=== PATIENT | female | born 1975 | race Caucasian/White ===

== ENCOUNTER 2022-04-11 15:27 | Emergency (ER) | payer BC, SELFPAY ==
--- NOTE | ~2022-04-11 | CT_ITS ---
EXAMINATION: CT ABDOMEN AND PELVIS WITHOUT CONTRAST CLINICAL INFORMATION: Suprapubic abdominal pain and history kidney stones COMPARISON: None TECHNIQUE: Multidetector volumetric imaging was performed from the superior aspect of the liver through the pubic symphysis. Sagittal and coronal reformatted images were obtained on the technologist's workstation. This CT examination was performed using dose optimization techniques as appropriate, variously including the following: *Automated exposure control *Adjustment of mA and/or kV according to patient size (this includes techniques or standardized protocols for targeted exams where dose is matched to indication/reason for exam; i.e. extremities or head) *Use of iterative reconstruction technique DLP: 637 mGy-cm FINDINGS: LUNG BASES: The visualized lung bases are unremarkable. LIVER, GALLBLADDER, AND BILIARY TREE: The liver is normal in size, shape, and attenuation. No focal hepatic lesion or biliary ductal dilatation is present. Status post cholecystectomy. PANCREAS: Unremarkable. SPLEEN: Unremarkable. ADRENAL GLANDS: Unremarkable. KIDNEYS AND URETERS: Approximately 1 cm nonobstructing right lower pole renal calculus versus cluster of [id number] stones. Adjacent 6 mm lower pole calculus and a punctate mid to lower pole calculus. Punctate 1-2 mm left lower pole calculus. No ureteral calculi. No hydronephrosis. No renal lesions. No perinephric stranding or collection. BLADDER: Unremarkable. GASTROINTESTINAL TRACT: Mild diverticulosis of the descending colon. No evidence of acute diverticulitis. No dilated bowel loops. No bowel wall thickening. Status post appendectomy. No intra-abdominal free air. ABDOMINAL WALL: Tiny fat-containing umbilical hernia. LYMPH NODES: No lymphadenopathy. VASCULAR: Unremarkable. PELVIC VISCERA: Status post hysterectomy. There is a small amount of free pelvic fluid with attenuation values greater than simple fluid measuring 23 Hounsfield units. No appreciable adnexal cyst/mass OSSEOUS STRUCTURES: No acute fracture or suspicious osseous lesion. CT/CT abdomen pelvis wo IV con IMPRESSION: 1. Small amount of free pelvic fluid, nonspecific. 2. No ureteral calculi or hydronephrosis. 3. Nonobstructing bilateral renal calculi, as described. 4. Status post cholecystectomy and appendectomy. 5. Mild colonic diverticulosis. No evidence of acute diverticulitis.
--- NOTE | ~2022-04-11 | US_ITS ---
EXAMINATION: US PELVIS CLINICAL INFORMATION: Suprapubic pelvic pain COMPARISON: CT abdomen pelvis performed earlier the same date TECHNIQUE: Ultrasound of the pelvis is performed using both transabdominal and transvaginal transducers along with Doppler. Transvaginal imaging is performed due to inadequate visualization transabdominally. FINDINGS: Status post hysterectomy. Adnexa: Both ovaries are visualized. There is dopplerable venous flow within the left ovary. Arterial flow not demonstrated. No dopplerable flow demonstrated in the right ovary due to artifact from adjacent peristalsing bowel loops. Small amount of free pelvic fluid better seen on prior CT. Right ovary measures 1.8 x 1.2 x 1 cm, volume 1.1 mL. No adnexal cyst/mass. Left ovary measures 1.7 x 1.4 x 1 cm, volume 1.3 mL. No adnexal cyst/mass. US/US pelvic and transvaginal IMPRESSION: 1. Status post hysterectomy. 2. Quiescent appearance of the ovaries. No adnexal cyst/mass or enlargement. Limited Doppler assessment on this exam.
--- NOTE | ~2022-04-11 | US_ITS ---
EXAMINATION: US PELVIS CLINICAL INFORMATION: Suprapubic pelvic pain COMPARISON: CT abdomen pelvis performed earlier the same date TECHNIQUE: Ultrasound of the pelvis is performed using both transabdominal and transvaginal transducers along with Doppler. Transvaginal imaging is performed due to inadequate visualization transabdominally. FINDINGS: Status post hysterectomy. Adnexa: Both ovaries are visualized. There is dopplerable venous flow within the left ovary. Arterial flow not demonstrated. No dopplerable flow demonstrated in the right ovary due to artifact from adjacent peristalsing bowel loops. Small amount of free pelvic fluid better seen on prior CT. Right ovary measures 1.8 x 1.2 x 1 cm, volume 1.1 mL. No adnexal cyst/mass. Left ovary measures 1.7 x 1.4 x 1 cm, volume 1.3 mL. No adnexal cyst/mass. US/US pelvic ovarian doppler IMPRESSION: 1. Status post hysterectomy. 2. Quiescent appearance of the ovaries. No adnexal cyst/mass or enlargement. Limited Doppler assessment on this exam.
--- NOTE | 2022-04-11 15:28 | ED.ABDPAIN ---
HPI - Abdominal Pain General Chief Complaint: Abdominal Pain <HI Guerra - Last Filed: 04/11/22 15:38> Stated Complaint: ?Kidney Stones <HI Guerra - Last Filed: 04/11/22 15:38> Time Seen by Provider: 04/11/22 15:48 <HI Guerra - Last Filed: 04/11/22 15:38> Source: patient <HI Gonzalez Last Filed: 04/11/22 18:59> Mode of arrival: ambulatory <HI Gonzalez - Last Filed: 04/11/22 18:59> Limitations: no limitations <HI Gonzalez Last Filed: 04/11/22 18:59> History of Present Illness HPI narrative: 46yoF with a PMHx of kidney stones, partial hysterectomy c/o sudden onset suprapubic abdominal pain and nausea while at [facility] [employer]. Reports it feels similar to her kidney stones pains. She denies any fevers, chills, nasal congestion/rhinorrhea, cough, chest pain or shortness of breath, back pain, flank pain, vomiting, black or bloody stools, diarrhea constipation, dysuria hematuria, abnormal vaginal discharge vaginal bleeding, recent travel or sick contacts or any other symptoms complaints or concerns at this time. <HI Gonzalez - Last Filed: 04/11/22 18:59> MD elicited complaint: abdominal pain <HI Gonzalez Last Filed: 04/11/22 18:59> Pertinent past history: kidney stones <HI Gonzalez Last Filed: 04/11/22 18:59> Onset (ago): hour(s) (Prior to arrival) <HI Gonzalez Last Filed: 04/11/22 18:59> Pain Consistency: constant <HI Gonzalez Last Filed: 04/11/22 18:59> Location: suprapubic <HI Gonzalez Last Filed: 04/11/22 18:59> Severity: moderate <HI Gonzalez Last Filed: 04/11/22 18:59> Quality: aching <HI Gonzalez Last Filed: 04/11/22 18:59> Radiation: none <HI Gonzalez Last Filed: 04/11/22 18:59> Migration to: no migration <HI Gonzalez Last Filed: 04/11/22 18:59> Exacerbating factors: nothing <HI Gonzalez Last Filed: 04/11/22 18:59> Relieving factors: nothing <HI Gonzalez Last Filed: 04/11/22 18:59> Associated symptoms: nausea <HI Gonzalez Last Filed: 04/11/22 18:59> Related Data Home Medications: Previous Rx's Medication Instructions Recorded ondansetron 4 mg disintegrating 4 mg PO Q6H PRN nausea and 04/11/22 tablet vomiting #14 tabs <HI Guerra Last Filed: 04/11/22 15:38> Allergies/Adverse Reactions: Allergies Allergy/AdvReac Type Severity Reaction Status Date / Time Iodinated Contrast Media Allergy Angioedema Verified 04/11/22 15:28 [IV Contrast Dye] <HI Guerra Last Filed: 04/11/22 15:38> Review of Systems Review of Systems Constitutional : No Fever, No Chills, No Night Sweats, No Fatigue, No Malaise Cardiovascular : No Chest Pain, No SOB Respiratory : No Cough, No Sputum, No Wheezing, No Dyspnea Gastrointestinal : + Nausea, No Vomiting, No Diarrhea, + abdominal Pain, No Hematochezia, No Melena Genitourinary : No irregular bleeding, No Dysuria, No Urinary Frequency, No Hematuria,No Urinary Incontinence, No Urgency, No Flank Pain Musculoskeletal : No joint pain, No Myalgias, No Joint Swelling Skin : No Skin Lesions, No rash Neuro : No Weakness, No Numbness, No Paresthesias, No Loss of Consciousness, No Dizziness, No Headache Heme/Lymph: No Lymphadenopathy Endocrine : No Temperature Intolerance <HI Gonzalez Last Filed: 04/11/22 18:59> Yes all other systems are reviewed and are negative <HI Gonzalez Last Filed: 04/11/22 18:59> PMFSH Past Medical History Attestation statement: The following information was validated with the patient. <HI Gonzalez Last Filed: 04/11/22 18:59> Source: old records reviewed and nursing notes reviewed <HI Gonzalez - Last Filed: 04/11/22 18:59> Medical History: Medical History (Updated 04/11/22 @ 21:21 by HI Lynn) Kidney stones <HI Guerra - Last Filed: 04/11/22 15:38> Surgical History: Surgical History (Updated 04/11/22 @ 17:28 by HI Gonzalez) History of appendectomy History of cholecystectomy Previous section S/P partial hysterectomy <HI Guerra - Last Filed: 04/11/22 15:38> Social History Social History: Social History Alcohol intake: never Smoked in Last 30 Days: No Use of substances other than those prescribed or required for medical reasons: No Advance Directives: No Advance Directives Information Provided: Yes <HI Guerra - Last Filed: 04/11/22 15:38> Physical Exam ED Vital Signs: Vital Signs - 24 hr 04/11/22 15:29 04/11/22 18:19 04/11/22 19:22 Temperature 97.8 F 98.4 F 98.1 F Pulse Rate 99 80 78 Respiratory Rate 18 13 18 Blood Pressure 152/92 H 122/84 128/75 Pulse Oximetry 99 98 98 Oxygen Delivery Method Room Air Room Air Room Air BMI result Body Mass Index 29.9 <HI Guerra - Last Filed: 04/11/22 15:38> Vital Signs - 24 hr 04/11/22 15:29 04/11/22 18:19 04/11/22 19:22 Temperature 97.8 F 98.4 F 98.1 F Pulse Rate 99 80 78 Respiratory Rate 18 13 18 Blood Pressure 152/92 H 122/84 128/75 Pulse Oximetry 99 98 98 Oxygen Delivery Method Room Air Room Air Room Air BMI result Body Mass Index 29.9 Vital signs have been reviewed and all within normal limits <HI Gonzalez - Last Filed: 04/11/22 18:59> Vital Signs - 24 hr 04/11/22 15:29 04/11/22 18:19 04/11/22 19:22 Temperature 97.8 F 98.4 F 98.1 F Pulse Rate 99 80 78 Respiratory Rate 18 13 18 Blood Pressure 152/92 H 122/84 128/75 Pulse Oximetry 99 98 98 Oxygen Delivery Method Room Air Room Air Room Air BMI result Body Mass Index 29.9 <HI Lynn - Last Filed: 04/11/22 21:24> Appearance: Alert. Oriented X3. No acute distress. Head: Normal external exam. Normocephalic. Eyes: PERRLA. EOMI. Conjunctiva and sclera normal. Eyelids normal. ENT: Pharynx normal. Uvula midline. Moist mucous membranes. No trismus noted. No drooling noted. No muffled voice noted. Neck: Normal inspection. Neck supple. FROM. No adenopathy. No meningeal signs. CVS: Normal heart rate and rhythm. Heart sound normal. No murmurs noted. Pulses normal throughout. Respiratory: No respiratory distress. Painless inspiration. Breath sounds normal. No wheezes/rales/rhonchi noted. Chest nontender. No accessory muscle usage noted or decreased air movement noted. Abdomen: Soft and moderate tenderness palpation to the suprapubic area with guarding. Nondistended. No rigidity. Bowel sounds normal in all 4 quadrants. No distention noted. No organomegaly noted. No visible injury noted. No rebound tenderness. Negative Rovsing sign. Negative obturator's sign. Negative psoas sign. Negative Vidal sign. Back: No CVA tenderness. Full range of motion noted. Skin: Skin warm and dry. Normal skin color. Normal skin turgor. No rashes/lesions/lacerations noted. Extremities: Extremities exhibit normal range of motion. Extremities nontender. Neuro: Oriented X 3. No motor deficit. No sensory deficit. Reflexes normal. Normal steady gait. CN's II-XII intact bilaterally? <HI Gonzalez - Last Filed: 04/11/22 18:59> Course Course Course Narrative: RME--46yo F w/PMHx renal stone, partial hysterectomy c/o sudden onset suprapubic abdominal pain and nausea while at [facility] [employer]. Denies fever, vomiting, flank pain, dysuria/hematuria, vaginal bleeding/discharge Patient very uncomfortable, in position, tearful, abdomen soft with suprapubic tenderness, no CVAT Labs, UA, IVF ordered, patient brought back to main ED <HI Guerra - Last Filed: 04/11/22 15:38> Reevaluation(s) Reevaluation #1: 46yoF with a PMHx of kidney stones, partial hysterectomy c/o sudden onset suprapubic abdominal pain and nausea while at [facility] [employer]. Reports it feels similar to her kidney stones pains. This is a with suprapubic abdominal pain, most concerning for kidney stone. Differential diagnoses: UTI. Abdominal exam without peritoneal signs. No evidence of acute abdomen at this time. Well appearing. Low suspicion for acute hepatobiliary disease (includng acute cholecystitis), acute infectious processes (pneumonia, hepatitis, pyelonephritis), vascular catastrophe, bowel obstruction or viscus perforation. Presentation not consistent with other acute, emergent causes of abdominal pain at this time. Labs reviewed - chloride 109. - Anion gap 10. - BUN 21. Otherwise all other labs are within normal limits. Plan: CT scan abdomen pelvis with IV contrast ordered at this time along with IVF's, 4 mg Zofran, 30 mg of IV Toradol and 4 mg of morphine and re-evaluate. <HI Gonzalez - Last Filed: 04/11/22 18:59> Time: 16:20 <HI Gonzalez - Last Filed: 04/11/22 18:59> Reevaluation #2: CT scan abdomen pelvis without IV contrast revealed small amount of free pelvic fluid nonspecific otherwise no hydronephrosis or ureteral calculi. She does have some stones in the kidneys. Otherwise no other acute processes. Therefore I discussed this with the patient will obtain an ultrasound of her ovaries/Doppler. Sign out to SUNIL Hull pending ultrasound and UA. <HI Gonzalez - Last Filed: 04/11/22 18:59> Time: 18:56 <HI Gonzalez Last Filed: 04/11/22 18:59> Reevaluation #3: UA without infection. Pelvic ultrasound status post hysterectomy. No adnexal cyst or mass or enlargement. Limited Doppler assessment on this exam however patient's history and physical exam not consistent with ovarian torsion. Case discussed my attending Dr. Bustillo who agrees with discharge home. Patient states she was in 10/10 pain before now experiencing 4/10 pain she reports significant improvement pain. Patient tolerating p.o.. Will be discharged home with PCP in OBGYN follow-up <HI Lynn - Last Filed: 04/11/22 21:24> Time: 21:24 <HI Lynn - Last Filed: 04/11/22 21:24> Medical Decision Making Lab Data MDM Lab Attestation statement: I reviewed the patient's lab results. <HI Gonzalez - Last Filed: 04/11/22 18:59> Result Diagrams: 04/11/22 15:54 04/11/22 15:54 <HI Guerra - Last Filed: 04/11/22 15:38> Labs: Lab Results 04/11/22 04/11/22 04/11/22 Range/Units 15:54 15:54 15:54 WBC 10.1 (4.8-10.8) X10*3/uL RBC 4.99 (4.20-5.50) X10*6/uL Hgb 14.0 (12.0-16.0) g/dl Hct 42.9 (37.0-47.0) % MCV 86.0 (80.0-98.0) fL MCH 28.1 (27.0-33.0) pg MCHC 32.6 (31.0-35.0) g/dl RDW 12.4 (11.0-16.0) % Plt Count 300 (160-400) X10*3/uL MPV 9.2 L (9.4-12.3) fL Immature Gran % (Auto) 0.2 (0.0-0.4) % Neut % (Auto) 70.2 (45-73) % Lymph % (Auto) 19.7 L (20-40) % [place] % (Auto) 6.5 (2-11) % Eos % (Auto) 3.0 (0-4) % Baso % (Auto) 0.4 (0-2) % Lymph # (Auto) 2.0 (1.2-4.9) X10*3/uL [place] # (Auto) 0.7 (0.1-1.2) X10*3/uL Eos # (Auto) 0.3 (0.0-0.4) X10*3/uL Baso # (Auto) 0.0 (0.0-0.2) X10*3/uL Abs Immat Gran (auto) 0.02 (0.00-0.03) X10*3/uL Absolute Neuts (auto) 7.1 (2.0-8.3) x10*3/uL Absolute Nucleated RBC 0.000 (0.0-0.012) X10*3/uL Nucleated RBC % (auto) 0.0 (0.0-0.2) /100WBC Sodium 140 (135-145) mmol/L Potassium 4.2 (3.3-5.1) mmol/L Chloride 109 H (96-108) mmol/L Carbon Dioxide 25 (22-29) mmol/L Anion Gap 10 L (12-20) BUN 21 H (9-16) mg/dL Creatinine 0.83 (0.5-1.4) mg/dL Estim Creat Clear Calc 89.3 Estimated GFR > 60 Random Glucose 88 (60-115) mg/dL Calcium 9.6 (8.4-10.2) mg/dL Magnesium 2.1 (1.6-2.6) mg/dL Total Bilirubin 0.3 (0.0-1.0) mg/dL Direct Bilirubin < 0.2 (0.0-0.5) mg/dL AST 16 (5-31) U/L ALT 17 (0-31) U/L Alkaline Phosphatase 73 (39-117) U/L Total Protein 6.9 (6.5-8.0) g/dL Albumin 4.3 (3.5-5.0) g/dL Lipase 26 (8-78) U/L Beta HCG, Quant < 2 mIU/mL Urine Color Urine Appearance Urine pH (5.0-9.0) Ur Specific [place] (1.005-1.025) Urine Protein (Neg-Trace) mg/dL Urine Glucose (UA) (Negative) mg/dL Urine Ketones (Negative) mg/dL Urine Blood (Negative) Urine Nitrite (Negative) Ur Leukocyte Esterase (Negative) 04/11/22 Range/Units 18:02 WBC (4.8-10.8) X10*3/uL RBC (4.20-5.50) X10*6/uL Hgb (12.0-16.0) g/dl Hct (37.0-47.0) % MCV (80.0-98.0) fL MCH (27.0-33.0) pg MCHC (31.0-35.0) g/dl RDW (11.0-16.0) % Plt Count (160-400) X10*3/uL MPV (9.4-12.3) fL Immature Gran % (Auto) (0.0-0.4) % Neut % (Auto) (45-73) % Lymph % (Auto) (20-40) % [place] % (Auto) (2-11) % Eos % (Auto) (0-4) % Baso % (Auto) (0-2) % Lymph # (Auto) (1.2-4.9) X10*3/uL [place] # (Auto) (0.1-1.2) X10*3/uL Eos # (Auto) (0.0-0.4) X10*3/uL Baso # (Auto) (0.0-0.2) X10*3/uL Abs Immat Gran (auto) (0.00-0.03) X10*3/uL Absolute Neuts (auto) (2.0-8.3) x10*3/uL Absolute Nucleated RBC (0.0-0.012) X10*3/uL Nucleated RBC % (auto) (0.0-0.2) /100WBC Sodium (135-145) mmol/L Potassium (3.3-5.1) mmol/L Chloride (96-108) mmol/L Carbon Dioxide (22-29) mmol/L Anion Gap (12-20) BUN (9-16) mg/dL Creatinine (0.5-1.4) mg/dL Estim Creat Clear Calc Estimated GFR Random Glucose (60-115) mg/dL Calcium (8.4-10.2) mg/dL Magnesium (1.6-2.6) mg/dL Total Bilirubin (0.0-1.0) mg/dL Direct Bilirubin (0.0-0.5) mg/dL AST (5-31) U/L ALT (0-31) U/L Alkaline Phosphatase (39-117) U/L Total Protein (6.5-8.0) g/dL Albumin (3.5-5.0) g/dL Lipase (8-78) U/L Beta HCG, Quant mIU/mL Urine Color Yellow Urine Appearance Clear Urine pH 6.5 (5.0-9.0) Ur Specific [place] <= 1.005 (1.005-1.025) Urine Protein Negative (Neg-Trace) mg/dL Urine Glucose (UA) Negative (Negative) mg/dL Urine Ketones Negative (Negative) mg/dL Urine Blood Negative (Negative) Urine Nitrite Negative (Negative) Ur Leukocyte Esterase Negative (Negative) <HI Guerra - Last Filed: 04/11/22 15:38> Lab Results 04/11/22 04/11/22 04/11/22 Range/Units 15:54 15:54 15:54 WBC 10.1 (4.8-10.8) X10*3/uL RBC 4.99 (4.20-5.50) X10*6/uL Hgb 14.0 (12.0-16.0) g/dl Hct 42.9 (37.0-47.0) % MCV 86.0 (80.0-98.0) fL MCH 28.1 (27.0-33.0) pg MCHC 32.6 (31.0-35.0) g/dl RDW 12.4 (11.0-16.0) % Plt Count 300 (160-400) X10*3/uL MPV 9.2 L (9.4-12.3) fL Immature Gran % (Auto) 0.2 (0.0-0.4) % Neut % (Auto) 70.2 (45-73) % Lymph % (Auto) 19.7 L (20-40) % [place] % (Auto) 6.5 (2-11) % Eos % (Auto) 3.0 (0-4) % Baso % (Auto) 0.4 (0-2) % Lymph # (Auto) 2.0 (1.2-4.9) X10*3/uL [place] # (Auto) 0.7 (0.1-1.2) X10*3/uL Eos # (Auto) 0.3 (0.0-0.4) X10*3/uL Baso # (Auto) 0.0 (0.0-0.2) X10*3/uL Abs Immat Gran (auto) 0.02 (0.00-0.03) X10*3/uL Absolute Neuts (auto) 7.1 (2.0-8.3) x10*3/uL Absolute Nucleated RBC 0.000 (0.0-0.012) X10*3/uL Nucleated RBC % (auto) 0.0 (0.0-0.2) /100WBC Sodium 140 (135-145) mmol/L Potassium 4.2 (3.3-5.1) mmol/L Chloride 109 H (96-108) mmol/L Carbon Dioxide 25 (22-29) mmol/L Anion Gap 10 L (12-20) BUN 21 H (9-16) mg/dL Creatinine 0.83 (0.5-1.4) mg/dL Estim Creat Clear Calc 89.3 Estimated GFR > 60 Random Glucose 88 (60-115) mg/dL Calcium 9.6 (8.4-10.2) mg/dL Magnesium 2.1 (1.6-2.6) mg/dL Total Bilirubin 0.3 (0.0-1.0) mg/dL Direct Bilirubin < 0.2 (0.0-0.5) mg/dL AST 16 (5-31) U/L ALT 17 (0-31) U/L Alkaline Phosphatase 73 (39-117) U/L Total Protein 6.9 (6.5-8.0) g/dL Albumin 4.3 (3.5-5.0) g/dL Lipase 26 (8-78) U/L Beta HCG, Quant < 2 mIU/mL Urine Color Urine Appearance Urine pH (5.0-9.0) Ur Specific [place] (1.005-1.025) Urine Protein (Neg-Trace) mg/dL Urine Glucose (UA) (Negative) mg/dL Urine Ketones (Negative) mg/dL Urine Blood (Negative) Urine Nitrite (Negative) Ur Leukocyte Esterase (Negative) 04/11/22 Range/Units 18:02 WBC (4.8-10.8) X10*3/uL RBC (4.20-5.50) X10*6/uL Hgb (12.0-16.0) g/dl Hct (37.0-47.0) % MCV (80.0-98.0) fL MCH (27.0-33.0) pg MCHC (31.0-35.0) g/dl RDW (11.0-16.0) % Plt Count (160-400) X10*3/uL MPV (9.4-12.3) fL Immature Gran % (Auto) (0.0-0.4) % Neut % (Auto) (45-73) % Lymph % (Auto) (20-40) % [place] % (Auto) (2-11) % Eos % (Auto) (0-4) % Baso % (Auto) (0-2) % Lymph # (Auto) (1.2-4.9) X10*3/uL [place] # (Auto) (0.1-1.2) X10*3/uL Eos # (Auto) (0.0-0.4) X10*3/uL Baso # (Auto) (0.0-0.2) X10*3/uL Abs Immat Gran (auto) (0.00-0.03) X10*3/uL Absolute Neuts (auto) (2.0-8.3) x10*3/uL Absolute Nucleated RBC (0.0-0.012) X10*3/uL Nucleated RBC % (auto) (0.0-0.2) /100WBC Sodium (135-145) mmol/L Potassium (3.3-5.1) mmol/L Chloride (96-108) mmol/L Carbon Dioxide (22-29) mmol/L Anion Gap (12-20) BUN (9-16) mg/dL Creatinine (0.5-1.4) mg/dL Estim Creat Clear Calc Estimated GFR Random Glucose (60-115) mg/dL Calcium (8.4-10.2) mg/dL Magnesium (1.6-2.6) mg/dL Total Bilirubin (0.0-1.0) mg/dL Direct Bilirubin (0.0-0.5) mg/dL AST (5-31) U/L ALT (0-31) U/L Alkaline Phosphatase (39-117) U/L Total Protein (6.5-8.0) g/dL Albumin (3.5-5.0) g/dL Lipase (8-78) U/L Beta HCG, Quant mIU/mL Urine Color Yellow Urine Appearance Clear Urine pH 6.5 (5.0-9.0) Ur Specific [place] <= 1.005 (1.005-1.025) Urine Protein Negative (Neg-Trace) mg/dL Urine Glucose (UA) Negative (Negative) mg/dL Urine Ketones Negative (Negative) mg/dL Urine Blood Negative (Negative) Urine Nitrite Negative (Negative) Ur Leukocyte Esterase Negative (Negative) <HI Gonzalez - Last Filed: 04/11/22 18:59> Lab Results 04/11/22 04/11/22 04/11/22 Range/Units 15:54 15:54 15:54 WBC 10.1 (4.8-10.8) X10*3/uL RBC 4.99 (4.20-5.50) X10*6/uL Hgb 14.0 (12.0-16.0) g/dl Hct 42.9 (37.0-47.0) % MCV 86.0 (80.0-98.0) fL MCH 28.1 (27.0-33.0) pg MCHC 32.6 (31.0-35.0) g/dl RDW 12.4 (11.0-16.0) % Plt Count 300 (160-400) X10*3/uL MPV 9.2 L (9.4-12.3) fL Immature Gran % (Auto) 0.2 (0.0-0.4) % Neut % (Auto) 70.2 (45-73) % Lymph % (Auto) 19.7 L (20-40) % [place] % (Auto) 6.5 (2-11) % Eos % (Auto) 3.0 (0-4) % Baso % (Auto) 0.4 (0-2) % Lymph # (Auto) 2.0 (1.2-4.9) X10*3/uL [place] # (Auto) 0.7 (0.1-1.2) X10*3/uL Eos # (Auto) 0.3 (0.0-0.4) X10*3/uL Baso # (Auto) 0.0 (0.0-0.2) X10*3/uL Abs Immat Gran (auto) 0.02 (0.00-0.03) X10*3/uL Absolute Neuts (auto) 7.1 (2.0-8.3) x10*3/uL Absolute Nucleated RBC 0.000 (0.0-0.012) X10*3/uL Nucleated RBC % (auto) 0.0 (0.0-0.2) /100WBC Sodium 140 (135-145) mmol/L Potassium 4.2 (3.3-5.1) mmol/L Chloride 109 H (96-108) mmol/L Carbon Dioxide 25 (22-29) mmol/L Anion Gap 10 L (12-20) BUN 21 H (9-16) mg/dL Creatinine 0.83 (0.5-1.4) mg/dL Estim Creat Clear Calc 89.3 Estimated GFR > 60 Random Glucose 88 (60-115) mg/dL Calcium 9.6 (8.4-10.2) mg/dL Magnesium 2.1 (1.6-2.6) mg/dL Total Bilirubin 0.3 (0.0-1.0) mg/dL Direct Bilirubin < 0.2 (0.0-0.5) mg/dL AST 16 (5-31) U/L ALT 17 (0-31) U/L Alkaline Phosphatase 73 (39-117) U/L Total Protein 6.9 (6.5-8.0) g/dL Albumin 4.3 (3.5-5.0) g/dL Lipase 26 (8-78) U/L Beta HCG, Quant < 2 mIU/mL Urine Color Urine Appearance Urine pH (5.0-9.0) Ur Specific [place] (1.005-1.025) Urine Protein (Neg-Trace) mg/dL Urine Glucose (UA) (Negative) mg/dL Urine Ketones (Negative) mg/dL Urine Blood (Negative) Urine Nitrite (Negative) Ur Leukocyte Esterase (Negative) 04/11/22 Range/Units 18:02 WBC (4.8-10.8) X10*3/uL RBC (4.20-5.50) X10*6/uL Hgb (12.0-16.0) g/dl Hct (37.0-47.0) % MCV (80.0-98.0) fL MCH (27.0-33.0) pg MCHC (31.0-35.0) g/dl RDW (11.0-16.0) % Plt Count (160-400) X10*3/uL MPV (9.4-12.3) fL Immature Gran % (Auto) (0.0-0.4) % Neut % (Auto) (45-73) % Lymph % (Auto) (20-40) % [place] % (Auto) (2-11) % Eos % (Auto) (0-4) % Baso % (Auto) (0-2) % Lymph # (Auto) (1.2-4.9) X10*3/uL [place] # (Auto) (0.1-1.2) X10*3/uL Eos # (Auto) (0.0-0.4) X10*3/uL Baso # (Auto) (0.0-0.2) X10*3/uL Abs Immat Gran (auto) (0.00-0.03) X10*3/uL Absolute Neuts (auto) (2.0-8.3) x10*3/uL Absolute Nucleated RBC (0.0-0.012) X10*3/uL Nucleated RBC % (auto) (0.0-0.2) /100WBC Sodium (135-145) mmol/L Potassium (3.3-5.1) mmol/L Chloride (96-108) mmol/L Carbon Dioxide (22-29) mmol/L Anion Gap (12-20) BUN (9-16) mg/dL Creatinine (0.5-1.4) mg/dL Estim Creat Clear Calc Estimated GFR Random Glucose (60-115) mg/dL Calcium (8.4-10.2) mg/dL Magnesium (1.6-2.6) mg/dL Total Bilirubin (0.0-1.0) mg/dL Direct Bilirubin (0.0-0.5) mg/dL AST (5-31) U/L ALT (0-31) U/L Alkaline Phosphatase (39-117) U/L Total Protein (6.5-8.0) g/dL Albumin (3.5-5.0) g/dL Lipase (8-78) U/L Beta HCG, Quant mIU/mL Urine Color Yellow Urine Appearance Clear Urine pH 6.5 (5.0-9.0) Ur Specific [place] <= 1.005 (1.005-1.025) Urine Protein Negative (Neg-Trace) mg/dL Urine Glucose (UA) Negative (Negative) mg/dL Urine Ketones Negative (Negative) mg/dL Urine Blood Negative (Negative) Urine Nitrite Negative (Negative) Ur Leukocyte Esterase Negative (Negative) <HI Lynn - Last Filed: 04/11/22 21:24> Independent Interpretation I performed an independent interpretation of an: CT Scan (CT scan results reviewed and discussed with patient at bedside) <HI Gonzalez - Last Filed: 04/11/22 18:59> Radiology Impression Discussion of test interpretation with radiology: I have reviewed the radiologist's reading. <HI Gonzalez - Last Filed: 04/11/22 18:59> Radiologist Impression: DLP: 637 mGy-cm FINDINGS: LUNG BASES: The visualized lung bases are unremarkable.? LIVER, GALLBLADDER, AND BILIARY TREE: The liver is normal in size, shape, and attenuation. No focal hepatic lesion or biliary ductal dilatation is present. Status post cholecystectomy.? PANCREAS: Unremarkable.? SPLEEN: Unremarkable.? ADRENAL GLANDS: Unremarkable.? KIDNEYS AND URETERS: Approximately 1 cm nonobstructing right lower pole renal calculus versus cluster of [id number] stones. Adjacent 6 mm lower pole calculus and a punctate mid to lower pole calculus. Punctate 1-2 mm left lower pole calculus. No ureteral calculi. No hydronephrosis. No renal lesions. No perinephric stranding or collection.? BLADDER: Unremarkable.? GASTROINTESTINAL TRACT: Mild diverticulosis of the descending colon. No evidence of acute diverticulitis. No dilated bowel loops. No bowel wall thickening. Status post appendectomy. No intra-abdominal free air.? ABDOMINAL WALL: Tiny fat-containing umbilical hernia.? LYMPH NODES: No lymphadenopathy. VASCULAR: Unremarkable. PELVIC VISCERA: Status post hysterectomy. There is a small amount of free pelvic fluid with attenuation values greater than simple fluid measuring 23 Hounsfield units. No appreciable adnexal cyst/mass? OSSEOUS STRUCTURES: No acute fracture or suspicious osseous lesion.? CT/CT abdomen pelvis wo IV con IMPRESSION: 1.? Small amount of free pelvic fluid, nonspecific. 2.? No ureteral calculi or hydronephrosis. 3.? Nonobstructing bilateral renal calculi, as described. 4.? Status post cholecystectomy and appendectomy. 5.? Mild colonic diverticulosis. No evidence of acute diverticulitis. <HI Gonzalez - Last Filed: 04/11/22 18:59> Independent Historian Clinical information obtained from an independent historian. History obtained from or confirmed by: Spouse <HI Gonzalez - Last Filed: 04/11/22 18:59> Prescription Management I considered prescription management with: Pain Medication <HI Gonzalez - Last Filed: 04/11/22 18:59> Medications Administered Discontinued Medications Generic Name Dose Route Start Last Admin Trade Name Freq PRN Reason Stop Dose Admin Hydromorphone HCl 1 mg 04/11/22 17:54 04/11/22 17:58 Hydromorphone Hcl 1 Mg/Ml Syringe IVPUSH 04/11/22 17:55 1 mg ONCE ONE Administration Protocol Sodium Chloride 1,000 mls @ 999 mls/hr 04/11/22 15:30 04/11/22 17:29 Ns IV 04/11/22 16:30 Infused .Q1H1M MOSHE Infusion Ketorolac Tromethamine 30 mg 04/11/22 15:49 04/11/22 16:14 Ketorolac Tromethamine 30 Mg/Ml Vial IVPUSH 04/11/22 15:50 30 mg ONCE ONE Administration Metoclopramide HCl 10 mg 04/11/22 18:34 04/11/22 19:00 Metoclopramide Hcl 10 Mg/2 Ml Vial IVPUSH 04/11/22 18:35 10 mg ONCE ONE Administration Morphine Sulfate 4 mg 04/11/22 16:18 04/11/22 16:37 Morphine Sulfate 4 Mg/Ml Cartridge IVPUSH 04/11/22 16:19 4 mg ONCE ONE Administration Protocol Ondansetron HCl 4 mg 04/11/22 15:49 04/11/22 16:13 Ondansetron Hcl 4 Mg/2 Ml Vial IVPUSH 04/11/22 15:50 4 mg ONCE ONE Administration <HI Guerra - Last Filed: 04/11/22 15:38> Medications Administered Discontinued Medications Generic Name Dose Route Start Last Admin Trade Name Chitra PRN Reason Stop Dose Admin Hydromorphone HCl 1 mg 04/11/22 17:54 04/11/22 17:58 Hydromorphone Hcl 1 Mg/Ml Syringe IVPUSH 04/11/22 17:55 1 mg ONCE ONE Administration Protocol Sodium Chloride 1,000 mls @ 999 mls/hr 04/11/22 15:30 04/11/22 17:29 Ns IV 04/11/22 16:30 Infused .Q1H1M MOSHE Infusion Ketorolac Tromethamine 30 mg 04/11/22 15:49 04/11/22 16:14 Ketorolac Tromethamine 30 Mg/Ml Vial IVPUSH 04/11/22 15:50 30 mg ONCE ONE Administration Metoclopramide HCl 10 mg 04/11/22 18:34 04/11/22 19:00 Metoclopramide Hcl 10 Mg/2 Ml Vial IVPUSH 04/11/22 18:35 10 mg ONCE ONE Administration Morphine Sulfate 4 mg 04/11/22 16:18 04/11/22 16:37 Morphine Sulfate 4 Mg/Ml Cartridge IVPUSH 04/11/22 16:19 4 mg ONCE ONE Administration Protocol Ondansetron HCl 4 mg 04/11/22 15:49 04/11/22 16:13 Ondansetron Hcl 4 Mg/2 Ml Vial IVPUSH 04/11/22 15:50 4 mg ONCE ONE Administration <HI Gonzalez - Last Filed: 04/11/22 18:59> Medications Administered Discontinued Medications Generic Name Dose Route Start Last Admin Trade Name Chitra PRN Reason Stop Dose Admin Hydromorphone HCl 1 mg 04/11/22 17:54 04/11/22 17:58 Hydromorphone Hcl 1 Mg/Ml Syringe IVPUSH 04/11/22 17:55 1 mg ONCE ONE Administration Protocol Sodium Chloride 1,000 mls @ 999 mls/hr 04/11/22 15:30 04/11/22 17:29 Ns IV 04/11/22 16:30 Infused .[id number] MOSHE Infusion Ketorolac Tromethamine 30 mg 04/11/22 15:49 04/11/22 16:14 Ketorolac Tromethamine 30 Mg/Ml Vial IVPUSH 04/11/22 15:50 30 mg ONCE ONE Administration Metoclopramide HCl 10 mg 04/11/22 18:34 04/11/22 19:00 Metoclopramide Hcl 10 Mg/2 Ml Vial IVPUSH 04/11/22 18:35 10 mg ONCE ONE Administration Morphine Sulfate 4 mg 04/11/22 16:18 04/11/22 16:37 Morphine Sulfate 4 Mg/Ml Cartridge IVPUSH 04/11/22 16:19 4 mg ONCE ONE Administration Protocol Ondansetron HCl 4 mg 04/11/22 15:49 04/11/22 16:13 Ondansetron Hcl 4 Mg/2 Ml Vial IVPUSH 04/11/22 15:50 4 mg ONCE ONE Administration <HI Lynn - Last Filed: 04/11/22 21:24> Critical Care Time Critical Care Time Critical Care Time: Yes <HI Gonzalez Last Filed: 04/11/22 18:59> Total Critical Care Time: 60 <HI Gonzalez Last Filed: 04/11/22 18:59> Attestation: I personally attest to this time spent taking care of the patient <HI Gonzalez Last Filed: 04/11/22 18:59> Discharge Plan Discharge Clinical Impression: Abdominal pain, Nausea <HI Guerra Last Filed: 04/11/22 15:38> Patient Disposition: Home, Self-Care <HI Guerra Last Filed: 04/11/22 15:38> Instructions: Acute Nausea and Vomiting (ED), Abdominal Pain (ED) <HI Guerra Last Filed: 04/11/22 15:38> Additional Instructions: Take your medications as prescribed. If you were prescribed antibiotics today, it is important that you take your medication to their entirety, do not skip any doses, do not finish them early. Follow-up with your primary care provider this week. Return to the emergency department with new or worsening symptoms. Such as fevers, chills, chest pain, shortness of breath, nausea, vomiting, dizziness, headache, vision changes, lethargy In case of emergency call 911 US/US pelvic and transvaginal IMPRESSION: 1.? Status post hysterectomy. 2.? Quiescent appearance of the ovaries. No adnexal cyst/mass or enlargement. Limited Doppler assessment on this exam. ? ? US/US pelvic ovarian doppler IMPRESSION: 1.? Status post hysterectomy. 2.? Quiescent appearance of the ovaries. No adnexal cyst/mass or enlargement. Limited Doppler assessment on this exam. ? <HI Guerra - Last Filed: 04/11/22 15:38> Prescriptions: New ondansetron 4 mg tablet,disintegrating 4 mg PO Q6H PRN (Reason: nausea and vomiting) Qty: 14 0RF <HI Guerra - Last Filed: 04/11/22 15:38> Referrals: [facility] [Provider Group] - 3 days Physician,Unknown J [Primary Care Provider] - 3 days <HI Guerra - Last Filed: 04/11/22 15:38> Stand Alone Forms: Work/School Release <HI Guerra - Last Filed: 04/11/22 15:38>
[2022-04-11 15:29] VITALS: BP 152/92; PULSE 99; RESP 18; TEMP 36.6; O2SAT 99; BMI 29.9
[2022-04-11 15:59] LABS: MANUAL DIFF FLAG NO
[2022-04-11 16:02] LABS: Basophils Percent Auto 0.4 % (0-2); Eosinophils Absolute Auto 0.3 X10*3/uL (0.0-0.4); Hematocrit 42.9 % (37.0-47.0); Imm Gran Abs Auto 0.02 X10*3/uL (0.00-0.03); Imm Gran Pct Auto 0.2 % (0.0-0.4); Lymphocytes Percent Auto 19.7 % (20-40); Mean Corpuscular HGB Conc 32.6 g/dl (31.0-35.0); Mean Corpuscular Hemoglobin 28.1 pg (27.0-33.0); Mean Platelet Volume 9.2 fL (9.4-12.3); Monocytes Absolute Auto 0.7 X10*3/uL (0.1-1.2); Monocytes Percent Auto 6.5 % (2-11); Neutrophils Absolute Auto 7.1 x10*3/uL (2.0-8.3); Neutrophils Percent Auto 70.2 % (45-73); Platelet Count 300 X10*3/uL (160-400); Red Blood Count 4.99 X10*6/uL (4.20-5.50); Red Cell Distribution Width 12.4 % (11.0-16.0); White Blood Count 10.1 X10*3/uL (4.8-10.8)
[2022-04-11] MEDS: ondansetron HCL 4 MG/2 ML VIAL IVPUSH (16:13)
[2022-04-11] MEDS: 0.9 % Sodium Chloride 1,000 ML 999 ML IV (16:14)
[2022-04-11] MEDS: Ketorolac Tromethamine 30 MG/ML VIAL IVPUSH (16:14)
[2022-04-11 16:15] LABS: Alanine Aminotransferase 17 U/L (0-31); Albumin Level 4.3 g/dL (3.5-5.0); Alkaline Phosphatase 73 U/L (39-117); Anion Gap 10 (12-20); Aspartate Amino Transferase 16 U/L (5-31); Bilirubin Direct < 0.2 mg/dL (0.0-0.5); Bilirubin Total 0.3 mg/dL (0.0-1.0); Blood Urea Nitrogen 21 mg/dL (9-16); Calcium 9.6 mg/dL (8.4-10.2); Carbon Dioxide 25 mmol/L (22-29); Chloride 109 mmol/L (96-108); Creatinine Clr Calc Pharmacy 89.3; Estimated Glomerular Filt Rate > 60; Glucose Random 88 mg/dL (60-115); Lipase 26 U/L (8-78); Magnesium 2.1 mg/dL (1.6-2.6); Potassium 4.2 mmol/L (3.3-5.1); Sodium 140 mmol/L (135-145); Total Protein 6.9 g/dL (6.5-8.0)
--- NOTE | 2022-04-11 16:18 | PC.NURSE ---
Pt tearful in room at this time. states 10/10 pain in lower abdomen. IV inserted and medications administered per MAR
[2022-04-11 16:29] LABS: HCG Quantitative < 2 mIU/mL
[2022-04-11] MEDS: Morphine Sulfate 4 MG/ML CARTRIDGE IVPUSH (16:37)
[2022-04-11] MEDS: HYDROmorphone HCl 1 MG/ML SYRINGE IVPUSH (17:58)
[2022-04-11 18:19] VITALS: BP 122/84; PULSE 80; RESP 13; TEMP 36.9; O2SAT 98
[2022-04-11 18:57] LABS: Appearance Urine Clear; Color Urine Yellow; Glucose Urine UA Negative (Negative); Leukocyte Esterase Urine Negative (Negative); Nitrite Urine Negative (Negative); PH 6.5 (5.0-9.0); Specific Gravity - Urine <= 1.005 (1.005-1.025); Urine Blood Negative (Negative); Urine Ketones Negative (Negative); Urine Protein Negative (Neg-Trace)
[2022-04-11] MEDS: Metoclopramide HCl 10 MG/2 ML VIAL IVPUSH (19:00)
[2022-04-11 19:22] VITALS: BP 128/75; PULSE 78; RESP 18; TEMP 36.7; O2SAT 98
== END 2022-04-11 21:44 | disposition home or self-care (01) ==
PROVIDERS: Physician Assistant; Emergency Provider Emergency Medicine
DX: R10.2 Pelvic and perineal pain (principal); R10.30 Lower abdominal pain, unspecified; R11.0 Nausea; Z87.442 Personal history of urinary calculi
CPT/HCPCS: 36415; 74176; 76830; 76856; 80048; 80076; 81003; 83690; 83735; 84702; 85025; 93975; 96361; 96374; 96375; 99284; 99285; J1170; J1885; J2270; J2405; J2765